=== PATIENT | male | born 1980 | race American Indian/Alaskan Native ===

== ENCOUNTER 2017-08-18 15:26 | Outpatient (CLI) | payer BC ==
--- NOTE | 2017-08-18 16:14 | XRay Report ---
CHEST TWO VIEWS: 08/18/17 15:26:00 CLINICAL: Right-sided chest pain. COMPARISON: None FINDINGS: Normal heart and pulmonary vasculature. The lungs are normally expanded and clear.The bones and soft tissues are unremarkable. IMPRESSION: Normal chest.
== END 2017-08-18 15:27 | disposition home or self-care (01) ==
LOC: XRAY 15:26
PROVIDERS: ATTEND Psychiatry & Neurology Neurology
DX: R07.9 Chest pain, unspecified (principal)
CPT/HCPCS: 71020

== ENCOUNTER 2019-11-26 12:06 | Outpatient (CLI) | payer BC ==
--- NOTE | 2019-11-26 14:54 | Magnetic Resonance Report ---
MRI LUMBAR SPINE 11/26/2019 INDICATION / CLINICAL INFORMATION: MAIN: HERNIATED DISC, LBP. COMPARISON: None available. FINDINGS: GENERAL OBSERVATIONS: Unenhanced MR images of the lumbar spine were obtained. There is no evidence of acute abnormality. Vertebral body alignment is unremarkable. [id number] ANALYSIS: L5-S1: Unremarkable. L4-5: Unremarkable. L3-4: Unremarkable. L2-3: Unremarkable. L1-2: Unremarkable. BONE MARROW: No significant abnormality. SPINAL CORD/CAUDA EQUINA: Normal PARASPINAL SOFT TISSUES: No significant abnormality. IMPRESSION: Negative unenhanced MRI of the lumbar spine. Signer Name: Paramjit Pruitt MD Signed: 11/26/2019 2:49 PM Workstation Name: [id number]
== END 2019-11-26 12:07 | disposition home or self-care (01) ==
LOC: MRI 12:06
PROVIDERS: ATTEND Psychiatry & Neurology Neurology
DX: M51.16 Intervertebral disc disorders with radiculopathy, lumbar region (principal)
CPT/HCPCS: 72148

== ENCOUNTER 2020-09-06 08:05 | Outpatient (CLI) | payer BC ==
--- NOTE | 2020-09-06 16:39 | Magnetic Resonance Report ---
MRI RIGHT KNEE WITHOUT CONTRAST INDICATION / CLINICAL INFORMATION: RIGHT KNEE PAIN. TECHNIQUE: Multiplanar, multisequence MR images were obtained. No contrast used. COMPARISON: Right knee radiographs 06/14/2020. FINDINGS: ACL: No significant abnormality. PCL: No significant abnormality. DISTAL QUADRICEPS TENDON: No significant abnormality. PATELLAR TENDON: No significant abnormality. MEDIAL MENISCUS: No significant abnormality. LATERAL MENISCUS: No significant abnormality. POSTEROLATERAL CORNER: No significant abnormality. MCL: No significant abnormality. LCL: No significant abnormality. DISTAL IT BAND: No significant abnormality. PATELLOFEMORAL ALIGNMENT: No significant abnormality. ARTICULAR CARTILAGE: There is full-thickness chondral fissuring along the central trochlea with mild underlying subchondral cystic change. Articular cartilage is otherwise preserved. JOINT SPACE: No significant joint effusion or synovitis. No significant popliteal cyst. No intra-lizet cular bodies. BONES: No significant bone marrow edema. No fracture. No osseous lesion. SOFT TISSUES: There is trace edema within the lateral head gastrocnemius and soleus muscles. ADDITIONAL FINDINGS: None. IMPRESSION: 1. No effusion, meniscal tear, or acute ligament injury. 2. Full-thickness chondral fissuring at the central trochlea. 3. Probable grade 1 gastrocsoleus muscle strain. Signer Name: Brady Hackett MD Signed: 09/06/2020 4:35 PM Workstation Name: [email or web address]
== END 2020-09-06 08:06 | disposition home or self-care (01) ==
LOC: MRI 08:05
PROVIDERS: ATTEND Anesthesiology
DX: M25.861 Other specified joint disorders, right knee (principal)
CPT/HCPCS: 73721